=== PATIENT | female | born 1975 | race African-American/Black ===

== ENCOUNTER 2021-03-07 14:55 | Emergency (ER) | payer OTHER ==
[2021-03-07 15:05] VITALS: BP 146/74; PULSE 88; RESP 18; TEMP 98.1
--- NOTE | 2021-03-07 15:29 | ED ---
Skin/Abscess/FB HPI - General Chief complaint: Skin/Abscess/Foreign Body Stated complaint: Poss Allergic Reaction Time Seen by Provider: 03/07/21 15:07 Source: patient Mode of arrival: ambulatory Limitations: no limitations - History of Present Illness Initial comments: 45-year-old female presents to the emergency department with a chief complaint of itchiness and rash. Patient reports the symptoms started about one week ago after she recently went to a new hotel. States she travels quite a bit for her work. States that she began to have generalized itchiness, particularly at night. States she also noticed random bite smallwood on her legs and arms that are itchy. She reports taking [id number] antihistamine medication but it is not helping. She does have history of seasonal ALLERGIES as well which she believes could also play a role. - Related Data Previous Rx's Medication Instructions Recorded Permethrin 5% Cream [Elimite] 1 applic TOPICAL ONCE #60 gram 03/07/21 Allergies Allergy/AdvReac Type Severity Reaction Status Date / Time latex Allergy Rash/Hives Verified 03/07/21 15:05 Review of Systems ROS Statement: Those systems with pertinent positive or pertinent negative responses have been documented in the HPI. ROS Other: All systems not noted in ROS Statement are negative. 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 Absent: tenderness Respiratory exam: Present: normal lung sounds bilaterally. Absent: respiratory distress Cardiovascular Exam: Present: regular rate, normal rhythm, normal heart sounds Extremities exam: Present: normal inspection, full ROM, normal capillary refill Back exam: Present: normal inspection, full ROM Neurological exam: Present: alert, oriented X3, normal gait Psychiatric exam: Present: normal affect, normal mood Skin exam: Present: warm, dry, intact, normal color, rash (Single, randomized bite smallwood noted on her legs, right arm and upper back. There is no clusters of bite smallwood. There is no burrowing signs. No signs of insects in the hair. No itching or rash between the fingers) Course Vital Signs 03/07/21 14:57 Temperature 98.1 F Pulse Rate 88 Respiratory 18 Rate Blood Pressure 146/74 O2 Sat by Pulse 98 Oximetry Medical Decision Making - Medical Decision Making 45-year-old female presents to the emergency department with a chief complaint of a rash. Physical examination, does appear to be single insect bites a random spots throughout the body. However, she does have a worsening of the itching only at night. She is concerned due to recent stay in a hotel. I do not suspect this is scabies or lice at this time. However, patient will prefer to be treated for scabies. I will send permethrin to the patient. Advised her to thoroughly wash all over her clothing and bedding. Also advised her to treat anybody in close contact with her. Case discussed with physician Disposition Clinical Impression: Insect bites and stings Disposition: HOME SELF-CARE Condition: Stable Instructions (If sedation given, give patient instructions): Insect Bite or Sting (ED) Additional Instructions: Wash all of your clothes and bedding. Make sure other persons in close contact is the same medication. Prescriptions: Permethrin 5% Cream [Elimite] 1 applic TOPICAL ONCE #60 gram Is patient prescribed a controlled substance at d/c from ED?: No Referrals: Nonstaff,Physician [Primary Care Provider] - 1-2 days Time of Disposition: 15:28
== END 2021-03-07 15:35 | disposition home or self-care (01) ==
LOC: EC 14:55
DX: S80.862A Insect bite (nonvenomous), left lower leg, initial encounter (principal); S80.861A Insect bite (nonvenomous), right lower leg, initial encounter; S40.861A Insect bite (nonvenomous) of right upper arm, initial encounter; S20.469A Insect bite (nonvenomous) of unspecified back wall of thorax, initial encounter; W57.XXXA Bitten or stung by nonvenomous insect and other nonvenomous arthropods, initial encounter; Y92.59 Other trade areas as the place of occurrence of the external cause
CPT/HCPCS: 99282